=== PATIENT | female | born 1975 | race Caucasian/White ===

== ENCOUNTER 2018-01-08 10:29 | Outpatient (CLI) | payer OTHER | END 2018-01-08 10:30 | disposition home or self-care (01) | LOC: DTY/OP 10:29 | PROVIDERS: ATTEND Surgery | DX: I10 Essential (primary) hypertension (principal) | CPT/HCPCS: 97802 ==

== ENCOUNTER 2018-05-28 08:30 | Inpatient (IN) | payer OTHER ==
[2018-05-28 09:09] VITALS: BMI 53.4
[2018-06-05] MEDS ORDERED: CEFAZOLIN/Water 2 GM/20 ML SYRINGE ONE (10:06)
[2018-06-05] MEDS ORDERED: Scopolamine 1.5 mg/72 hour Patch ONE (10:06)
[2018-06-05] MEDS ORDERED: Heparin 5,000 UNITS/ML VIAL ONE (10:06)
[2018-06-05] MEDS ORDERED: Midazolam HCl 2 mg/2 ml Vial ONE (10:25)
[2018-06-05] MEDS ORDERED: Fentanyl 100 MCG/2 ML VIAL ONE ×2 (10:44→13:03)
[2018-06-05] MEDS ORDERED: Bupivacaine/Epinephrine 0.25% 30 ML VIAL ONE (10:54)
[2018-06-05] MEDS ORDERED: hydrALAZINE 20 MG/ML VIAL SLOW IVP PRN (12:30)
[2018-06-05] MEDS ORDERED: Dextrose 5% in Water 1,000 ML IV PRN (12:30)
[2018-06-05] MEDS ORDERED: Ondansetron HCl/PF 4 MG/2 ML Vial IVP PRN ×3 (12:30→13:18)
[2018-06-05] MEDS ORDERED: Hydrocodone-Acetamin 15 ML UDCUP PO PRN ×2 (12:30→13:24)
[2018-06-05] MEDS ORDERED: Promethazine HCl 25 MG/ML VIAL IM PRN ×3 (12:30→13:18)
[2018-06-05] MEDS ORDERED: Dextrose 50% Abboject 50 ML SYRINGE SLOW IVP PRN (12:30)
[2018-06-05] MEDS ORDERED: diphenhydrAMINE 50 MG/ML VIAL IVP PRN ×2 (12:30→13:18)
[2018-06-05] MEDS ORDERED: HYDROmorphone 2 MG/ML VIAL SLOW IVP PRN (12:42)
[2018-06-05] MEDS ORDERED: Promethazine HCl 25 MG/ML VIAL SLOW IVP PRN (12:42)
[2018-06-05] MEDS ORDERED: Ketorolac Tromethamine 30 MG/ML VIAL IVP PRN (12:42)
--- NOTE | 2018-06-05 12:48 | OP ---
DATE OF PROCEDURE: 06/05/2018 PREOPERATIVE DIAGNOSIS: Morbid obesity. SURGEON: Emory Marroquin M.D. PROCEDURE: Laparoscopic sleeve gastrectomy, esophagogastroscopy. INDICATIONS: This is a 42-year-old female, morbidly obese, who has attempted multiple weight loss pr ograms without success. FINDINGS: A 38 Azeri bougie used. PROCEDURE IN DETAIL: After informed consent was obtained, the patient was taken to the operating jenn m and given general endotracheal anesthesia. She was placed in the supine position. The abdomen was prepped and draped in usual fashion. Local anesthesia infiltrated subcutaneously and deep and a 12 mm incision was performed approximately 8 inches below the xiphoid slightly to the left. Veress need le inserted. Drop test performed. Pneumoperitoneum was created to a volume of 2 liters of carbon di oxide. Utilizing a bladeless 12 mm trocar and 0 degree laparoscope, direct visual entry in the abdom inal cavity was performed. Pneumoperitoneum was created to a pressure of [address] d in steep reverse Trendelenburg position. Nathansen liver retractor inserted. Left lobe of liver r etracted superiorly. The pylorus identified and a 12 mm port placed on the right beneath it and two 12s placed left subcostal. The omentum was taken off the greater curvature 5 cm from the pylorus uti lizing the LigaSure. This short gastrics divided with LigaSure and left crura defined with LigaSure. A 38-Azeri bougie inserted directed into the antrum. A 60 mm green load stapler used to divide th e antrum to the bougie. Another green load used along the bougie. Two Golds along the bougie, and t hen finally a blue as she had a very thick stomach. Hemostasis assured. Both bougie removed. Intra operative endoscopy was performed. The video endoscope inserted under direct vision and advanced int o the sleeve. The staple line inspected. There was no bleeding. Staple line then tested by inflati ng the new stomach with pressurized air under water. There was no air leak. Stomach decompressed. Scope removed. The remnant stomach removed from the abdomen through the left lateral port site. The fascia closed with 0 Vicryl suture and the GraNee needle. Trocars and retractors removed and the sk in closed with interrupted 4-0 Rapide. Dermabond applied. The patient tolerated the procedure well and was transferred to recovery in good condition. Sponge and needle count verified correct x2.
[2018-06-05] MEDS ORDERED: Promethazine HCl 25 MG/ML VIAL ONE (13:03)
[2018-06-05] MEDS ORDERED: Naloxone HCl 0.4 mg/ml Vial IV PRN (13:18)
[2018-06-05] MEDS ORDERED: diphenhydrAMINE 50 MG/ML VIAL IM PRN (13:18)
[2018-06-05] MEDS ORDERED: diphenhydrAMINE 25 MG CAP PO PRN (13:18)
[2018-06-05] MEDS ORDERED: fentaNYL Citrate/PF 2,000 MCG in Sodium Chloride 0.9% 60 ML IV PRN (13:18)
[2018-06-05] MEDS ORDERED: Zolpidem Tartrate 5 MG TAB PO PRN (13:18)
[2018-06-05] MEDS ORDERED: Communication Order-Pharmacy FS SCH (13:30)
[2018-06-05] MEDS: D5 1/2 NS w/20 mEq KCL 1,000 ML IV SCH ×2 (16:47)
[2018-06-05] MEDS ORDERED: Ketorolac Tromethamine 30 MG/ML VIAL ONE (17:31)
[2018-06-05] MEDS ORDERED: ePHEDrine/0.9% NaCl/PF SYRINGE 50 mg/10 ml ONE (17:31)
[2018-06-05] MEDS ORDERED: Lidocaine 1% PF 5 ML VIAL ONE (17:31)
[2018-06-05] MEDS ORDERED: Metoclopramide HCl 10 MG/2 ML VIAL ONE (17:31)
[2018-06-05] MEDS ORDERED: Glycopyrrolate 0.2 MG/ML 5 ML SYRINGE ONE (17:31)
[2018-06-05] MEDS ORDERED: Dexamethasone 20 MG/5 ML VIAL ONE (17:31)
[2018-06-05] MEDS ORDERED: PROPOFOL 200 MG/20 ML VIAL ONE (17:31)
[2018-06-05] MEDS: CEFAZOLIN/Water 2 GM/20 ML SYRINGE SLOW IVP SCH (18:27)
[2018-06-06] MEDS: CEFAZOLIN/Water 2 GM/20 ML SYRINGE SLOW IVP SCH (02:02)
[2018-06-06] MEDS: D5 1/2 NS w/20 mEq KCL 1,000 ML IV SCH ×2 (02:11→08:45)
[2018-06-06 05:48] LABS: #Lymphocytes 1.8 thou/uL (1.20-3.40); #Monocytes 0.7 thou/uL (0.11-0.59); #Neutrophils 9.5 thou/uL (1.40-6.50); %Basophils 0.2 % (0.0-1.0); %Eosinophils 0.1 % (0.0-10.0); %Monocytes 5.8 % (0.0-10.0); %Neutrophils 78.9 % (42.0-75.0); Hemoglobin 12.6 g/dL (12.0-16.0); Mean Corpuscular HGB CONC 32.8 g/dL (32.0-36.0); Mean Corpuscular Hemoglobin 30.8 pg (27.0-31.0); Mean Corpuscular Volume 93.7 fL (78.0-98.0); Mean Platelet Volume 8.2 fL (7.4-10.4); Platelet Count 364 thou/uL (130-400); RBC Distribution Width 12.5 % (11.5-14.5); Red Blood Cell (RBC) Count 4.08 mill/uL (4.20-5.40); White Blood Cell (WBC) Count 12.1 thou/uL (4.8-10.8)
[2018-06-06] MEDS ORDERED: Levothyroxine Sodium 50 MCG TAB PO SCH (06:00)
[2018-06-06 06:12] LABS: Anion Gap 11 mmol/L (10-20); BUN (Urea Nitrogen) 11 mg/dL (7.0-18.7); Calc. Creatinine Clearance 266 mL/min (70-130); Calcium 8.1 mg/dL (7.8-10.44); Carbon Dioxide 25 mmol/L (22-29); Chloride 106 mmol/L (98-107); Estimated GFR-MDRD 82; Glucose 136 mg/dL (70-105); Potassium 4.3 mmol/L (3.5-5.1); Sodium 138 mmol/L (136-145)
[2018-06-06] MEDS ORDERED: Meloxicam 15 MG TAB PO SCH (09:00)
[2018-06-06] MEDS ORDERED: Pantoprazole 40 MG VIAL IVP SCH (09:00)
[2018-06-06] MEDS ORDERED: Enoxaparin Sodium 40 MG/0.4 ML SYRINGE SC SCH (09:00)
--- NOTE | 2018-06-06 10:44 | RAD ---
UPPER GI: History: Post op gastric sleeve procedure. FINDINGS: The patient was given 15 ml of Gastrografin. She ingested this without difficulty. It passed through the GE junction without difficulty. No signs of extravasation. IMPRESSION: Unremarkable post gastric sleeve Gastrografin study. POS: [facility]
[2018-06-06 11:59] VITALS: BP 122/74; TEMP 97.9
--- NOTE | 2018-06-06 13:01 | DIS ---
DISCHARGE DIAGNOSIS: Morbid obesity. PROCEDURES DURING ADMISSION: Laparoscopic sleeve gastrectomy, intraoperative esophagogastroscopy, po stoperative Gastrografin swallow. HOSPITAL COURSE: The patient was admitted, taken to the operating room where she underwent a sleeve gastrectomy. Postoperatively, she has done well. Swallow was fine. She was started on liquid. She is tolerating them well. She was discharged home on hydrocodone and Zofran. She will follow up casie altman in 2 weeks.
== END 2018-06-06 13:00 | disposition home or self-care (01) | DRG 621 ==
LOC: SURG A 06-05 08:25 → SJJU 06-05 12:37
PROVIDERS: ADMIT Surgery; ATTEND Surgery
PROC: 0DB64Z3 Excision of Stomach, Percutaneous Endoscopic Approach, Vertical (ICD-10-PCS; principal; 2018-06-05)
DX: E66.01 Morbid (severe) obesity due to excess calories (principal); Z68.43 Body mass index [BMI] 50.0-59.9, adult; Z87.891 Personal history of nicotine dependence
CPT/HCPCS: 36415; 74241; 80048; 85025; 88307; 88312; C9113; J1100; J1644; J1650; J1885; J2001; J2250; J2405; J2550; J2704; J2765; J3010; J7050

== ENCOUNTER 2018-05-28 08:49 | Outpatient (CLI) | payer OTHER ==
[2018-05-28 10:16] LABS: #Basophils 0.1 thou/uL (0.0-0.2); #Eosinphils 0.1 thou/uL (0.0-0.7); #Lymphocytes 1.9 thou/uL (1.20-3.40); #Monocytes 0.5 thou/uL (0.11-0.59); #Neutrophils 7.4 thou/uL (1.40-6.50); %Basophils 0.7 % (0.0-1.0); %Eosinophils 1.2 % (0.0-10.0); %Lymphocytes 18.6 % (21.0-51.0); %Neutrophils 74.5 % (42.0-75.0); Hemoglobin 14.3 g/dL (12.0-16.0); Mean Corpuscular HGB CONC 33.1 g/dL (32.0-36.0); Mean Corpuscular Hemoglobin 30.7 pg (27.0-31.0); Mean Corpuscular Volume 92.9 fL (78.0-98.0); Platelet Count 402 thou/uL (130-400); RBC Distribution Width 12.6 % (11.5-14.5); Red Blood Cell (RBC) Count 4.65 mill/uL (4.20-5.40)
[2018-05-28 10:22] LABS: Hemoglobin A1c 4.7 % (4.0-6.0)
[2018-05-28 10:34] LABS: BHCG - Serum Negative (NEGATIVE); Pregs Control Background? CLEAR/WHITE (CLR/WHITE); Pregs Control Bar Appear? YES (CONTROL BAR)
--- NOTE | 2018-05-28 10:38 | RAD ---
PA AND LATERAL CHEST: History: Pre op. FINDINGS: Heart size and mediastinum within normal limits. Lungs are clear of infiltrates. No bony findings. IMPRESSION: No active intrathoracic disease. POS: [facility]
[2018-05-28 11:07] LABS: ALT (SGPT) 21 U/L (8-55); AST (SGOT) 16 U/L (5-34); Albumin 4.2 g/dL (3.5-5.0); Alkaline Phosphatase 74 U/L (40-150); Anion Gap 11 mmol/L (10-20); BUN (Urea Nitrogen) 22 mg/dL (7.0-18.7); Bilirubin, Direct 0.2 mg/dL (0.1-0.3); Bilirubin, Total 0.5 mg/dL (0.2-1.2); Calc. Creatinine Clearance 0 mL/min (70-130); Calcium 9.6 mg/dL (7.8-10.44); Carbon Dioxide 27 mmol/L (22-29); Chloride 103 mmol/L (98-107); Estimated GFR-MDRD 73; Globulin 3.1 g/dL (2.4-3.5); Glucose 88 mg/dL (70-105); Potassium 4.8 mmol/L (3.5-5.1); Protein, Total 7.3 g/dL (6.0-8.3); Sodium 136 mmol/L (136-145)
== END 2018-05-28 08:50 | disposition home or self-care (01) ==
LOC: LABBT 08:49
PROVIDERS: ATTEND Surgery
DX: E66.01 Morbid (severe) obesity due to excess calories (principal)
CPT/HCPCS: 71046; 80053; 80076; 83036; 84703; 85025; 93005; 93010

== ENCOUNTER 2018-06-10 07:56 | Emergency (ER) | payer OTHER | END 2018-06-10 08:53 | disposition home or self-care (01) | LOC: ERS 07:56 | DX: T81.30XA Disruption of wound, unspecified, initial encounter (principal); E03.9 Hypothyroidism, unspecified; F41.9 Anxiety disorder, unspecified; F32.9 Major depressive disorder, single episode, unspecified; Z79.899 Other long term (current) drug therapy | CPT/HCPCS: 99283 ==

== ENCOUNTER 2018-08-05 08:08 | Outpatient (CLI) | payer OTHER ==
--- NOTE | 2018-08-05 14:17 | MRI ---
MRI THORACIC SPINE WITHOUT CONTRAST: HISTORY: Thoracic radiculopathy. COMPARISON: None. TECHNIQUE: MRI thoracic spine is performed without intravenous Gadolinium administration. Multisequential, mult iplanar imaging is performed. FINDINGS: Appropriate T1 marrow signal intensity of the thoracic vertebrae. Thoracic spine vertebral body heig ht is maintained. No fracture. No significant STIR hyperintensity to suggest edema or ligamentous i njury. Visualized mediastinum, lung parenchyma, and solid organs are unremarkable. The thoracic cord has a normal size and signal intensity. No cord malacia. No cord expansion. No T 2 hyperintensity in the cord. Conus medullaris terminates at the mid T12 level. There is no significant central canal stenosis. Or neural foraminal narrowing throughout the thoracic spine. IMPRESSION: No significant central canal stenosis or neural foraminal narrowing. POS: [facility]
--- NOTE | 2018-08-05 14:27 | MRI ---
MRI LUMBAR SPINE WITHOUT CONTRAST: Date: 08/05/18 HISTORY: M43.16 spondylolisthesis lumbar region. M54.16 lumbar radiculopathy. COMPARISON: None. FINDINGS: The aortic contour is nonaneurysmal. No hydronephrosis. No retroperitoneal adenopathy. Paraspinal mus culature is symmetric. Conus medullaris terminates at the superior end plate of L1. Levels are as follows: L1-2: Normal disc. No neural foraminal or spinal canal narrowing. L2-3: Normal disc. No neural foraminal or spinal canal narrowing. Mild facet arthrosis. L3-4: There is a left subforaminal and extraforaminal posterior disc osteophyte complex with associa alondra annular fissure. This causes moderate left-sided neural foraminal narrowing. Spinal canal is norm al. L4-5: There is a right paracentral and lateral recess posterior disc protrusion, small, measuring le ss than 2.0 mm in AP dimension. This causes mild to moderate right-sided neural foraminal narrowing w ith abutment of the traversing right-sided L5 nerve root. Left neural foramen is patent. L5-S1: There is bilateral pars interarticularis defects with 1.0 mm anterolisthesis. There is broad based posterior disc osteophyte complex with moderate bilateral neural foraminal narrowing with abutm ent of both exiting nerve roots. IMPRESSION: 1. Moderate spondylosis centered at L4-5 and L5-S1 with description as above. 2. Likely bilateral pars interarticularis defect at L5 with minimal 1.0 mm anterolisthesis. POS: [facility]
== END 2018-08-05 08:09 | disposition home or self-care (01) ==
LOC: TBSIIMAG 08:08
PROVIDERS: ATTEND Specialist
DX: M43.16 Spondylolisthesis, lumbar region (principal); M47.26 Other spondylosis with radiculopathy, lumbar region; M54.14 Radiculopathy, thoracic region; M47.817 Spondylosis without myelopathy or radiculopathy, lumbosacral region
CPT/HCPCS: 72146; 72148

== ENCOUNTER 2018-10-29 07:56 | Day surgery (SDC) | payer BC ==
[~2018-10-29 07:56] MED LIST: Acetaminophen 500 MG TAB PO PRN; Acetaminophen 500 MG TAB PO SCH; INFLIXIMAB-DYYB 900 MG in Sodium Chloride 0.9% 250 ML 250 ML IVPB SCH; Sodium Chloride 0.9% 1,000 ML IV SCH; diphenhydrAMINE 50 MG/ML VIAL IVP PRN; diphenhydrAMINE 50 MG/ML VIAL IVP SCH
[2018-10-29] MEDS ORDERED: Sodium Chloride 0.9% 20 ML ONE (08:25)
[2018-10-29 10:01] VITALS: BP 117/76; TEMP 98.6
== END 2018-10-29 11:40 | disposition home or self-care (01) ==
LOC: ONC/OP 07:56
PROVIDERS: ATTEND Internal Medicine Rheumatology
DX: M45.9 Ankylosing spondylitis of unspecified sites in spine (principal); Z88.1 Allergy status to other antibiotic agents; Z88.5 Allergy status to narcotic agent; Z79.1 Long term (current) use of non-steroidal anti-inflammatories (NSAID); Z79.899 Other long term (current) drug therapy
CPT/HCPCS: 96375; 96413; 96415; J1200; J7050; Q5103

== ENCOUNTER 2018-11-12 12:44 | Day surgery (SDC) | payer BC ==
[2018-11-12] MEDS ORDERED: Multivit, Adult Inj 10 ML VIAL ONE (12:58)
[2018-11-12] MEDS ORDERED: Ondansetron PF 4 MG/2 ML Vial ONE (12:58)
== END 2018-11-12 14:24 | disposition home or self-care (01) ==
LOC: SCSER/OP 12:44
PROVIDERS: ATTEND Surgery
DX: Z29.8 Encounter for other specified prophylactic measures (principal); Z88.1 Allergy status to other antibiotic agents; Z88.5 Allergy status to narcotic agent; Z79.1 Long term (current) use of non-steroidal anti-inflammatories (NSAID); Z79.899 Other long term (current) drug therapy
CPT/HCPCS: J2405

== ENCOUNTER 2018-12-03 13:34 | Outpatient (CLI) | payer BC ==
--- NOTE | 2018-12-03 14:13 | RAD ---
XR Cerv Sp Ap Lat STANDARD History: [M54.12 radiculopathy at cervical region] Comparison: None. Findings: Mild degenerative disc space narrowing at C4/C5 and C5/C6 with posterior disc osteophyte co mplexes. 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 Prevertebral soft tissues are unremarkable. No significant translation in extension with 2 mm anterol isthesis of C3 over C4 with flexion. Impression: Low-grade translation with flexion at C3/C4.
== END 2018-12-03 13:35 | disposition home or self-care (01) ==
LOC: RAD 13:34
PROVIDERS: ATTEND Nurse Practitioner Family
DX: M54.12 Radiculopathy, cervical region (principal)
CPT/HCPCS: 72040

== ENCOUNTER 2018-12-10 13:19 | Day surgery (SDC) | payer BC ==
[~2018-12-10 13:19] MED LIST changes: +INFLIXIMAB DYYB IVPB SCH; -INFLIXIMAB-DYYB 900 MG in Sodium Chloride 0.9% 250 ML 250 ML IVPB SCH; +SODIUM CHLORIDE 0.9% IVPB SCH
[2018-12-10 14:51] VITALS: BP 117/96; TEMP 98.8
== END 2018-12-10 16:26 | disposition home or self-care (01) ==
LOC: ONC/OP 13:19
PROVIDERS: ATTEND Internal Medicine Rheumatology
DX: M45.9 Ankylosing spondylitis of unspecified sites in spine (principal); Z88.5 Allergy status to narcotic agent; Z88.8 Allergy status to other drugs, medicaments and biological substances
CPT/HCPCS: 96375; 96413; 96415; J1200; J7050; Q5103

== ENCOUNTER 2019-01-02 15:38 | Outpatient (CLI) | payer BC ==
--- NOTE | 2019-01-02 16:40 | MRI ---
MRI cervical spine noncontrast HISTORY: Neck pain. Bilateral arm radiculopathy with numbness. FINDINGS: There is reversal of the normal lordotic curvature of the cervical spine. Vertebral body he ights are maintained. Desiccation of all of the intervertebral discs. C2-3, C3-4: Mild osteophytosis. Central canal and neural foramina are patent. C4-5: Prominent posterior central disc bulge. There is slight effacement of the ventral aspect of the thecal sac and spinal cord without abnormal signal in the cord. A large cushion of CSF remains posteriorly. Neural foramina are patent. C5-6: Diffuse posterior disc bulge with contact but no significant compression of the spinal cord. No abnormal signal within the cord. Uncovertebral and facet hypertrophy. Neural foramina remain patent. C6-7: Mild right posterior disc bulge. Central canal and neural foramina remain patent. C7-T1: Central canal and neural foramina are patent. IMPRESSION: Prominent posterior disc bulges at the C4-5 and C5-C6 levels, contacting but not signific antly compressing the spinal cord. No significant central canal or foraminal stenoses.
== END 2019-01-02 15:39 | disposition home or self-care (01) ==
LOC: TBSIIMAG 15:38
PROVIDERS: ATTEND Specialist
DX: M54.12 Radiculopathy, cervical region (principal)
CPT/HCPCS: 72141

== ENCOUNTER 2019-01-21 12:55 | Day surgery (SDC) | payer BC ==
[2019-01-21] MEDS ORDERED: Sodium Chloride 0.9% 30 ML ONE (13:10)
[2019-01-21 13:12] VITALS: BP 133/75; TEMP 98.2
== END 2019-01-21 15:52 | disposition home or self-care (01) ==
LOC: ONC/OP 12:55
PROVIDERS: ATTEND Internal Medicine Rheumatology
DX: M45.9 Ankylosing spondylitis of unspecified sites in spine (principal); Z88.1 Allergy status to other antibiotic agents; Z88.5 Allergy status to narcotic agent; Z79.1 Long term (current) use of non-steroidal anti-inflammatories (NSAID); Z79.899 Other long term (current) drug therapy
CPT/HCPCS: 96413; 96415; J1040; J1200; J2001; J7050; Q5103; Q9967; S0020

== ENCOUNTER 2019-02-25 08:31 | Day surgery (SDC) | payer BC ==
[~2019-02-25 08:31] MED LIST changes: -Acetaminophen 500 MG TAB PO PRN; -Sodium Chloride 0.9% 1,000 ML IV SCH; -diphenhydrAMINE 50 MG/ML VIAL IVP PRN; -diphenhydrAMINE 50 MG/ML VIAL IVP SCH
[2019-02-25] MEDS ORDERED: Sodium Chloride 0.9% 20 ML ONE (08:37)
[2019-02-25 08:45] VITALS: BP 125/76; TEMP 98.4
[2019-02-25] MEDS: diphenhydrAMINE 50 MG/ML VIAL IVP SCH ×2 (08:58→11:29)
== END 2019-02-25 13:16 | disposition home or self-care (01) ==
LOC: ONC/OP 08:31
PROVIDERS: ATTEND Internal Medicine Rheumatology
DX: M45.9 Ankylosing spondylitis of unspecified sites in spine (principal); L29.8 Other pruritus; T39.8X5A Adverse effect of other nonopioid analgesics and antipyretics, not elsewhere classified, initial encounter; Z88.1 Allergy status to other antibiotic agents; Z88.5 Allergy status to narcotic agent
CPT/HCPCS: 96375; 96413; 96415; J1200; J7050; Q5103

== ENCOUNTER 2019-04-04 08:31 | Day surgery (SDC) | payer BC ==
[~2019-04-04 08:31] MED LIST changes: +diphenhydrAMINE 25 MG CAP PO SCH; +diphenhydrAMINE 50 MG/ML VIAL IVP SCH
[2019-04-04] MEDS ORDERED: Sodium Chloride 0.9% 20 ML ONE (08:40)
[2019-04-04 08:52] VITALS: BP 117/65; TEMP 97.5
== END 2019-04-04 12:04 | disposition home or self-care (01) ==
LOC: ONC/OP 08:31
PROVIDERS: ATTEND Internal Medicine Rheumatology
DX: M45.9 Ankylosing spondylitis of unspecified sites in spine (principal); Z88.1 Allergy status to other antibiotic agents; Z88.5 Allergy status to narcotic agent
CPT/HCPCS: 96375; 96413; 96415; J1200; J7050; Q0163; Q5103

== ENCOUNTER 2019-05-13 08:48 | Day surgery (SDC) | payer BC ==
[2019-05-13 09:10] VITALS: BP 107/61; TEMP 98.2
[2019-05-13] MEDS ORDERED: INFLIXIMAB DYYB IVPB SCH ×2 (09:15)
[2019-05-13] MEDS ORDERED: SODIUM CHLORIDE 0.9% IVPB SCH ×2 (09:15)
[2019-05-13] MEDS ORDERED: Acetaminophen 500 MG TAB PO SCH (09:15)
[2019-05-13] MEDS ORDERED: diphenhydrAMINE 25 MG CAP PO SCH (09:15)
[2019-05-13] MEDS ORDERED: diphenhydrAMINE 50 MG/ML VIAL IVP SCH (09:15)
[2019-05-13] MEDS ORDERED: Sodium Chloride 0.9% 20 ML ONE (09:35)
== END 2019-05-13 12:46 | disposition home or self-care (01) ==
LOC: ONC/OP 08:48
PROVIDERS: ATTEND Internal Medicine Rheumatology
DX: M45.9 Ankylosing spondylitis of unspecified sites in spine (principal); Z88.1 Allergy status to other antibiotic agents; Z88.5 Allergy status to narcotic agent
CPT/HCPCS: 96375; 96413; 96415; J1200; J7050; Q5103

== ENCOUNTER 2019-06-25 09:21 | Day surgery (SDC) | payer BC ==
[2019-06-25] MEDS ORDERED: Sodium Chloride 0.9% 20 ML ONE (09:25)
[2019-06-25] MEDS: diphenhydrAMINE 50 MG/ML VIAL IVP SCH ×2 (09:42→12:20)
[2019-06-25 10:04] VITALS: BP 112/61; TEMP 98.1
== END 2019-06-25 14:30 | disposition home or self-care (01) ==
LOC: ONC/OP 09:21
PROVIDERS: ATTEND Internal Medicine Rheumatology
DX: M45.9 Ankylosing spondylitis of unspecified sites in spine (principal); Z88.1 Allergy status to other antibiotic agents; Z88.5 Allergy status to narcotic agent
CPT/HCPCS: 96375; 96413; 96415; J1200; J7050; Q5103

== ENCOUNTER 2019-08-05 10:20 | Day surgery (SDC) | payer BC ==
[2019-08-05] MEDS ORDERED: Acetaminophen 500 MG TAB PO PRN (10:36)
[2019-08-05] MEDS ORDERED: diphenhydrAMINE 50 MG/ML VIAL IVP PRN (10:37)
[2019-08-05] MEDS ORDERED: diphenhydrAMINE 25 MG CAP PO PRN (10:37)
[2019-08-05] MEDS ORDERED: SODIUM CHLORIDE 0.9% IVPB SCH (10:45)
[2019-08-05] MEDS ORDERED: INFLIXIMAB DYYB IVPB SCH (10:45)
[2019-08-05 12:51] VITALS: BP 126/71; TEMP 98.4
== END 2019-08-05 15:14 | disposition home or self-care (01) ==
LOC: ONC/OP 10:20
PROVIDERS: ATTEND Internal Medicine Rheumatology
DX: M45.9 Ankylosing spondylitis of unspecified sites in spine (principal); Z88.1 Allergy status to other antibiotic agents; Z88.5 Allergy status to narcotic agent
CPT/HCPCS: 96375; 96413; 96415; J1200; J7050; Q5103

== ENCOUNTER 2019-09-30 06:33 | Emergency (ER) | payer BC ==
[2019-09-30] MEDS ORDERED: Lidocaine 1% (PF) 30 ML VIAL ONE (06:45)
[2019-09-30] MEDS ORDERED: Bacitracin 1 PK ONE (06:59)
== END 2019-09-30 07:00 | disposition home or self-care (01) ==
LOC: ERS 06:33
DX: S61.412A Laceration without foreign body of left hand, initial encounter (principal); E03.9 Hypothyroidism, unspecified; F41.9 Anxiety disorder, unspecified; F32.9 Major depressive disorder, single episode, unspecified; Z79.899 Other long term (current) drug therapy; W26.0XXA Contact with knife, initial encounter
CPT/HCPCS: 12001; J2001

== ENCOUNTER 2019-09-30 07:13 | Day surgery (SDC) | payer BC ==
[2019-09-30] MEDS ORDERED: Sodium Chloride 0.9% 20 ML ONE (09:25)
== END 2019-09-30 13:09 | disposition home or self-care (01) ==
LOC: ONC/OP 07:13
PROVIDERS: ATTEND Internal Medicine Rheumatology
DX: M45.9 Ankylosing spondylitis of unspecified sites in spine (principal); Z88.1 Allergy status to other antibiotic agents; Z88.5 Allergy status to narcotic agent
CPT/HCPCS: 96375; 96413; 96415; J1200; J7050; Q5103